=== PATIENT | male | born 1940 | race American Indian/Alaskan Native ===

== ENCOUNTER 2016-10-13 14:30 | Outpatient (CLI) | payer MEDICARE ==
--- NOTE | 2016-10-13 15:35 | XRay Report ---
RIGHT ANKLE, 3 views: History: Right ankle pain. Bone mineralization is normal. No acute osseous abnormality or joint pathology is identified. Mild vascular calcifications are noted. IMPRESSION: Unremarkable right ankle films.
== END 2016-10-13 14:31 | disposition home or self-care (01) ==
LOC: SPVIMAG 14:30
DX: M25.871 Other specified joint disorders, right ankle and foot (principal); N18.3 Chronic kidney disease, stage 3 (moderate); E11.22 Type 2 diabetes mellitus with diabetic chronic kidney disease

== ENCOUNTER 2017-11-13 14:32 | Outpatient (CLI) | payer MEDICARE ==
--- NOTE | 2017-11-13 15:16 | XRay Report ---
RIGHT SHOULDER RADIOGRAPHS INDICATION: Right shoulder pain. COMPARISON: None similar. FINDINGS: Frontal and Y views of the right shoulder, 3 projections demonstrate normal humeral head contour, well positioned against the glenoid. Intact AC articulation with mild distal acromial spurring. Preserved scapular contour. Normal visualized soft tissues, right ribs and lung. Mid thoracic spine osteophytes. Possible bony demineralization. CONCLUSION: No acute right shoulder radiographic abnormality with few degenerative changes noted, as described. Thank you for the opportunity to participate in this patient's care.
== END 2017-11-13 14:33 | disposition home or self-care (01) ==
LOC: XRAY 14:32
PROVIDERS: ATTEND Internal Medicine
DX: M25.78 Osteophyte, vertebrae (principal); E11.22 Type 2 diabetes mellitus with diabetic chronic kidney disease; N18.3 Chronic kidney disease, stage 3 (moderate); Z88.8 Allergy status to other drugs, medicaments and biological substances; Z88.6 Allergy status to analgesic agent

== ENCOUNTER 2019-03-10 12:52 | Outpatient (CLI) | payer MEDICARE ==
--- NOTE | 2019-03-10 14:53 | XRay Report ---
RIGHT FOOT HISTORY: Pain. COMPARISON: None. TECHNIQUE: 3 views of the right foot were obtained. FINDINGS: Bones: No fracture or dislocation. Mild diffuse osteopenia. A small Achilles spur. Joint spaces: Maintained. Soft tissues: Arterial calcifications. Additional findings: None. IMPRESSION: 1. No significant bone or joint abnormality. Signer Name: Lc Reid MD Signed: 03/10/2019 2:48 PM Workstation Name: [id number]
--- NOTE | 2019-03-10 14:57 | XRay Report ---
RIGHT ANKLE HISTORY: Pain. COMPARISON: None. TECHNIQUE: 3 views of the right ankle obtained. FINDINGS: Bones: No fracture or dislocation. A small Achilles spur. Joint spaces: Maintained. Soft tissues: No significant abnormality. Additional findings: Arterial calcifications. IMPRESSION: 1. No significant bone or joint abnormality. Signer Name: Lc Reid MD Signed: 03/10/2019 2:53 PM Workstation Name: [id number]
== END 2019-03-10 12:53 | disposition home or self-care (01) ==
LOC: XRAY 12:52
PROVIDERS: ATTEND Internal Medicine
DX: M85.871 Other specified disorders of bone density and structure, right ankle and foot (principal); M76.61 Achilles tendinitis, right leg; Z88.8 Allergy status to other drugs, medicaments and biological substances